=== PATIENT | female | born 1965 | race Caucasian/White ===

== ENCOUNTER 2019-02-13 12:10 | Emergency (ER) | payer OTHER ==
[2019-02-13 12:21] VITALS: RESP 18; TEMP 97.9
[2019-02-13] MEDS ORDERED: SODIUM CHLORIDE 0.9% 500 ML 500 ML IV ONE (13:09)
[2019-02-13 13:20] LABS: Basophils # (A) 0.2 k/uL (0-0.2); Basophils % (A) 2 %; Eosinophils # (A) 0.4 k/uL (0-0.7); Eosinophils % (A) 6 %; HCT 40.5 % (34.0-46.0); HGB 14.6 gm/dL (11.4-16.0); Lymphocytes # (A) 1.7 k/uL (1.0-4.8); Lymphocytes % (A) 24 %; MCH 33.4 pg (25.0-35.0); MCHC 36.2 g/dL (31.0-37.0); MCV 92.3 fL (80.0-100.0); Mean Platelet Volume 7.2; Monocytes # (A) 0.4 k/uL (0-1.0); Monocytes % (A) 6 %; Neutrophils # (A) 4.3 k/uL (1.3-7.7); Neutrophils % (A) 59 %; Platelet Count 349 k/uL (150-450); RBC 4.39 m/uL (3.80-5.40); RDW 13.3 % (11.5-15.5); WBC 7.2 k/uL (3.8-10.6)
[2019-02-13] MEDS ORDERED: FAMOTIDINE 20 MG/2 ML VIAL IV STA (13:21)
[2019-02-13] MEDS ORDERED: methylPREDNISolone SOD SUCCI 125 MG/2 ML VIAL IV STA (13:22)
[2019-02-13] MEDS ORDERED: ONDANSETRON 4 MG/2 ML VIAL IVP STA (13:22)
[2019-02-13] MEDS ORDERED: MORPHINE SULFATE 2 MG/ML SYRINGE IVP STA (13:22)
[2019-02-13] MEDS ORDERED: diphenhydrAMINE 50 MG/ML 1 ML VIAL IVP STA (13:22)
[2019-02-13 13:30] LABS: ALT 37 U/L (9-52); AST 26 U/L (14-36); African American GFR (CKD) >90 (>60 ml/min/1.73 sqM); Albumin 4.4 g/dL (3.5-5.0); Alkaline Phosphatase 89 U/L (38-126); Anion Gap 11 mmol/L; Blood Urea Nitrogen 12 mg/dL (7-17); Carbon Dioxide 21 mmol/L (22-30); Chloride 107 mmol/L (98-107); Glucose 107 mg/dL (74-99); Potassium 3.8 mmol/L (3.5-5.1); Sodium 139 mmol/L (137-145); Total Bilirubin 0.4 mg/dL (0.2-1.3); Total Protein 7.3 g/dL (6.3-8.2)
--- NOTE | 2019-02-13 14:33 | XR ---
EXAMINATION TYPE: XR chest 2V DATE OF EXAM: 02/13/2019 COMPARISON: NONE TECHNIQUE: PA and lateral views submitted. HISTORY: Cough FINDINGS: The lungs are clear and there is no pneumothorax, pleural effusion, or focal pneumonia. No overt fa ilure. IMPRESSION: 1. No acute process.
--- NOTE | 2019-02-13 14:53 | ED ---
ENT HPI - General Chief complaint: ENT Stated complaint: Ear/throat pain Time Seen by Provider: 02/13/19 12:52 Source: family Mode of arrival: ambulatory Limitations: no limitations - History of Present Illness Initial comments: 53-year-old female presents emergency department for evaluation of cough congestion and right ear pain. Patient also states she has had chronic abdominal pain and she is unsure if this is related to her hernia. Patient states she's been vomiting every day. Denies diarrhea. Patient denies any chest pain shortness of breath. She denies any hematemesis melena or hematochezia. Patient denies any fevers. Patient states that her cough is productive she denies any pain with inspiration leg swelling or hemoptysis. Patient states she feels as though she is some sinus pressure. Patient is concerned she also has a right ear infection given the pain and pressure. Patient denies any severe headaches, neck stiffness or photophobia. Remaining review of system negative. Upon arrival patient appears well besides acute d istress. - Related Data Previous Rx's Medication Instructions Recorded Amoxic-Pot Clav 875-125Mg 1 tab PO Q12HR 7 Days #14 tablet 02/13/19 [Augmentin 875-125] Fluconazole [Diflucan] 150 mg PO ONCE 1 Days #1 tab 02/13/19 Allergies Allergy/AdvReac Type Severity Reaction Status Date / Time Iodinated Contrast Media Allergy Rash/Hives Verified 02/13/19 12:22 prochlorperazine Allergy Confusion Verified 02/13/19 12:22 [From Compazine] sumatriptan [From Imitrex] Allergy Anaphylaxis Verified 02/13/19 12:22 Review of Systems ROS Statement: Those systems with pertinent positive or pertinent negative responses have been documented in the HPI. ROS Other: All systems not noted in ROS Statement are negative. Past Medical History Past Medical History: GERD/Reflux Additional Past Medical History / Comment(s): Migraines, IBS, Colitis History of Any Multi-Drug Resistant Organisms: None Reported Past Surgical History: Appendectomy, Section, Hernia Repair, Hysterectomy Additional Past Surgical History / Comment(s): Lumpectomy (R) breast Past Psychological History: Depression Smoking Status: Former smoker Past Alcohol Use History: Occasional Past Drug Use History: Marijuana General Exam - General Exam Comments Initial Comments: General: The patient is awake and alert, in no distress, and does not appear acutely ill. Eye: +3 mm pupils are equal, round and reactive to light, extra-ocular movements are intact. No nystagmus. There is normal conjunctiva bilaterally. No signs of icterus. No photophobia Ears, nose, mouth and throat: There are moist mucous membranes and no oral lesions. Oropharynx was not erythematous there is no tonsillar enlargement exud ates or lesions. Uvula midline. Right tympanic membrane erythematous a small effusion however the left tympanic membrane is non-erythematous there is no effusions bulging or retraction. No tenderness to palpation of the mastoid. No anterior cervical lymphadenopathy. Rhinorrhea, clear and bilateral nares. No tripoding, no drooling. Neck: The neck is supple, there is no tenderness or JVD. No nuchal rigidity Cardiovascular: There is a regular rate and rhythm. No murmur, rub or gallop is appreciated. Respiratory: Lungs are clear to auscultation, respirations are non-labored, breath sounds are equal. No wheezes, stridor, rales, or rhonchi. No retractions or abdominal breathing. Gastrointestinal: Soft, non-distended, mild umbilical pain when palpating the abdomen, questionable area concerning of ventral hernia, remaining abdomen without pain, masses or organomegaly noted. There is no rebound or guarding present. Bowel sounds are unremarkable. Musculoskeletal: Normal ROM, no tenderness. Strength 5/5. Sensation intact. Radial pulses equal bilaterally 2+. Neurological: A&O x 3. CN II-XII intact grossly, There are no obvious motor or sensory deficits. Coordination appears grossly intact. Speech appears normal, no muffling. Skin: Skin is warm and dry and no rashes or lesions are noted. No extremity edema Psychiatric: Cooperative Limitations: no limitations Course Vital Signs 02/13/19 02/13/19 02/13/19 12:16 12:37 15:15 Temperature 97.9 F Pulse Rate 118 H 98 75 Respiratory 18 18 18 Rate Blood Pressure 147/79 156/102 O2 Sat by Pulse 97 96 98 Oximetry 02/13/19 16:15 Temperature Pulse Rate 72 Respiratory 18 Rate Blood Pressure 154/98 O2 Sat by Pulse 98 Oximetry Medical Decision Making - Medical Decision Making Nontoxic well appearing 53-year-old female presenting for upper respiratory symptoms. Patient also noted to have chronic abdominal pain as well as vomiting daily for the past week. Patient denies diarrhea. Patient does have umbilical abdominal pain on exam concern for possible obstruction given history of vomiting or cursory hernia. And uses reveal hiatal hernia to the process of the intra-abdominal cavity noted on an aging studies. Patient's laboratory studies stable. Patient does have erythematous right tympanic membrane with small effusion. There is no external auditory canal lesions. Patient be treated with Augmentin for sinus pressure and right ear pain patient has no nuchal irritation signs are concerns or meningitis. Patient states she is not as concerned about the abdominal pain. I recommended patient follow up with gastrology or Gen. surgery for hiatal hernia. Patient provided Dr. Kelsey on-call surgeon for outpatient follow-up in regards to hiatal hernia. Otherwise of the side effects the patient stay for discharge with outpatient primary care follow-up for upper respiratory infection as there is no focal consolidations concerned for pneumonia on chest x-ray. As discussed with attending provider Dr. Yuen who is agreeable with care plan and discharge at this time. - Lab Data Result diagrams: 02/13/19 12:40 02/13/19 12:40 Lab Results 02/13/19 02/13/19 Range/Units 12:40 12:40 WBC 7.2 (3.8-10.6) k/uL RBC 4.39 (3.80-5.40) m/uL Hgb 14.6 (11.4-16.0) gm/dL Hct 40.5 (34.0-46.0) % MCV 92.3 (80.0-100.0) fL MCH 33.4 (25.0-35.0) pg MCHC 36.2 (31.0-37.0) g/dL RDW 13.3 (11.5-15.5) % Plt Count 349 (150-450) k/uL Neutrophils % 59 % Lymphocytes % 24 % Monocytes % 6 % Eosinophils % 6 % Basophils % 2 % Neutrophils # 4.3 (1.3-7.7) k/uL Lymphocytes # 1.7 (1.0-4.8) k/uL Monocytes # 0.4 (0-1.0) k/uL Eosinophils # 0.4 (0-0.7) k/uL Basophils # 0.2 (0-0.2) k/uL Sodium 139 (137-145) mmol/L Potassium 3.8 (3.5-5.1) mmol/L Chloride 107 (98-107) mmol/L Carbon Dioxide 21 L (22-30) mmol/L Anion Gap 11 mmol/L BUN 12 (7-17) mg/dL Creatinine 0.72 (0.52-1.04) mg/dL Est GFR (CKD-EPI)AfAm >90 (>60 ml/min/1.73 sqM) Est GFR (CKD-EPI)NonAf >90 (>60 ml/min/1.73 sqM) Glucose 107 H (74-99) mg/dL Calcium 10.0 (8.4-10.2) mg/dL Total Bilirubin 0.4 (0.2-1.3) mg/dL AST 26 (14-36) U/L ALT 37 (9-52) U/L Alkaline Phosphatase 89 (38-126) U/L Total Protein 7.3 (6.3-8.2) g/dL Albumin 4.4 (3.5-5.0) g/dL Disposition Clinical Impression: Upper respiratory infection, Otitis media, Elevated blood pressure reading Disposition: HOME SELF-CARE Condition: Good Instructions (If sedation given, give patient instructions): Ear Infection (ED) Additional Instructions: Please use medication as discussed. Please follow-up with family doctor in the next 2 days. Follow-up with general surgery for hernia concerns. Please return to emergency room if the symptoms increase or worsen or for any other concerns. Prescriptions: Amoxic-Pot Clav 875-125Mg [Augmentin 875-125] 1 tab PO Q12HR 7 Days #14 tablet Fluconazole [Diflucan] 150 mg PO ONCE 1 Days #1 tab Is patient prescribed a controlled substance at d/c from ED?: No Referrals: None,Stated [Primary Care Provider] - 1-2 days [facility] [employer] [facility] [NON-STAFF] - 1-2 days Kelsey Escamilla MD [STAFF PHYSICIAN] - 1-2 days Time of Disposition: 15:50
--- NOTE | 2019-02-13 15:26 | CT ---
EXAMINATION TYPE: CT abdomen pelvis w con DATE OF EXAM: 02/13/2019 COMPARISON: None HISTORY: Abdominal pain. Pt hx colitis, IBS. CT DLP: 1035.8 mGycm Automated exposure control for dose reduction was used. TECHNIQUE: Helical acquisition of images was performed from the lung bases through the pelvis. CONTRAST: Performed without Oral Contrast and with IV Contrast, patient injected with 100 mL of Isovue 300. FINDINGS: There is mild subsegmental atelectasis at the right posterior lung base. There is no pleural effusion . Heart size is normal. There is hiatal hernia. There is 1.5 cm hypodensity in the right lobe of the liver. The bile ducts are not dilated. There are clips from cholecystectomy. Spleen appears normal. There is no pancreatic mass. There is no adrenal mass. Kidneys show satisfactory contrast opacification. There is no hydronephrosi s. There is no retroperitoneal adenopathy. Bladder distends smoothly. There is no inguinal hernia. Th ere are numerous phleboliths in the pelvis. There is no evidence of bowel obstruction. There is no ascites or free air. There is no mesenteric ed lloyd. Appendix is not seen. There is no sign of thickened appendix. There is slight lumbar levoscolios is. There is no lumbar compression fracture. Bony pelvis is intact. There is apparent hysterectomy. T here is broad-based umbilical hernia that contains fat. IMPRESSION: NO ACUTE ABNORMALITY OF THE ABDOMEN PELVIS. PREVIOUS SURGERY. NO EVIDENCE OF COLITIS.
[2019-02-13] MEDS ORDERED: ACETAMINOPHEN TAB 325 MG TAB PO STA (16:08)
[2019-02-13 16:18] VITALS: BP 154/98; PULSE 72
== END 2019-02-13 16:15 | disposition home or self-care (01) ==
LOC: EC 12:10
DX: J06.9 Acute upper respiratory infection, unspecified (principal); H65.91 Unspecified nonsuppurative otitis media, right ear; R03.0 Elevated blood-pressure reading, without diagnosis of hypertension; G89.29 Other chronic pain; R10.9 Unspecified abdominal pain; Z88.8 Allergy status to other drugs, medicaments and biological substances; Z91.048 Other nonmedicinal substance allergy status; Z87.891 Personal history of nicotine dependence; Z90.89 Acquired absence of other organs; Z90.710 Acquired absence of both cervix and uterus
CPT/HCPCS: 36415; 80053; 85025; 71046; 74177; 99284; 96374; 96375 ×4; 96361; J1200; J2930; J2405; J2270; Q9967

== ENCOUNTER → 2019-03-17 | Outpatient (CLI) | payer OTHER ==
--- NOTE | 2019-03-17 12:08 | FL ---
EXAMINATION: Cervical and Thoracic Esophagram DATE OF EXAM: 03/17/2019 CLINICAL INDICATION: 53 year-old female history of breast cancer, complaining of acid reflux and food sticking in the esophagus for 2 months. Known hiatal hernia. COMPARISON: None Total Fluoroscopy Time: 1.59 minutes Total images: 42 FINDINGS: The swallowing mechanism is normal and hypopharyngeal anatomy is preserved. The cervical and thoracic portions have a normal course and caliber and normal motility. The mucosa is normal and no persistent filling defect is encountered. There is a moderate-sized sliding hiatal hernia. Moderate gastroesophageal reflux is demonstrated wit h both Valsalva and turning maneuvers. IMPRESSION: Moderate-sized sliding hiatal hernia with moderate gastroesophageal reflux.
== END | disposition home or self-care (01) ==
LOC: RADUSWWP 11:00
PROVIDERS: ATTEND Surgery Plastic and Reconstructive Surgery
DX: Z01.810 Encounter for preprocedural cardiovascular examination (principal); K21.9 Gastro-esophageal reflux disease without esophagitis; K44.9 Diaphragmatic hernia without obstruction or gangrene
CPT/HCPCS: 74220; 93005